=== PATIENT | female | born 1985 | race Caucasian/White ===

== ENCOUNTER 2018-03-10 12:07 | Emergency (ER) | payer OTHER ==
[2018-03-10] MEDS: LIDOCAINE 1% MDV 20ML VIAL IM (13:45)
[2018-03-10] MEDS: PERCOCET 5MG/325MG TAB PO (13:45)
[2018-03-10 13:49] LABS: BASO % 0.2 % (0.0-1.0); EOS # 0.1 10^3/uL (0.0-0.50); EOS % 0.7 % (0.0-3.0); HEMATOCRIT 39.9 % (36.0-47.0); HEMOGLOBIN 13.5 g/dl (12.0-15.5); IMMATURE GRANULOCYTE % 0.4 % (0-3.0); LYMPH # 1.9 10^3/uL (1.5-4.5); LYMPH % 20.7 % (24.0-44.0); MEAN CORPUSCULAR HEMOGLOBIN 34.9 pg (27.0-33.0); MEAN CORPUSCULAR HGB CONC 33.8 g/dl (32.0-36.5); MEAN CORPUSCULAR VOLUME 103.1 fl (80.0-96.0); MONO # 0.6 10^3/uL (0.0-0.8); MONO % 7.1 % (0.0-5.0); NEUTROPHILS # 6.3 10^3/uL (1.8-7.7); NEUTROPHILS % 70.9 % (36.0-66.0); PLATELET COUNT, AUTOMATED 246 10^3/uL (150-450); RED BLOOD COUNT 3.87 10^6/uL (4.00-5.40); RED CELL DISTRIBUTION WIDTH 12.6 % (11.5-14.5); WHITE BLOOD COUNT 8.9 10^3/uL (4.0-10.0)
[2018-03-10 14:22] LABS: ANION GAP 9 MEQ/L (8-16); BLOOD UREA NITROGEN 10 MG/DL (7-18); C REACTIVE PROTEIN QUANTITATIV 0.36 MG/DL (0.00-0.30); CALCIUM LEVEL 9.3 MG/DL (8.5-10.1); CARBON DIOXIDE LEVEL 23 MEQ/L (21-32); CHLORIDE LEVEL 103 MEQ/L (98-107); CREATININE FOR GFR 0.78 MG/DL (0.55-1.30); GLOMERULAR FILTRATION RATE > 60.0 (>60); GLUCOSE, FASTING 80 MG/DL (70-100); POTASSIUM SERUM 4.2 MEQ/L (3.5-5.1); SODIUM LEVEL 135 MEQ/L (136-145)
== END 2018-03-10 15:04 | disposition home or self-care (01) ==
LOC: M ED 12:07
DX: L72.3 Sebaceous cyst (principal); Z79.3 Long term (current) use of hormonal contraceptives; Z79.899 Other long term (current) drug therapy
CPT/HCPCS: 80048

== ENCOUNTER 2018-03-12 09:31 | Emergency (ER) | payer OTHER | END 2018-03-12 10:24 | disposition home or self-care (01) | LOC: M ED 09:31 | DX: Z48.00 Encounter for change or removal of nonsurgical wound dressing (principal); L02.11 Cutaneous abscess of neck; Z79.2 Long term (current) use of antibiotics; Z79.3 Long term (current) use of hormonal contraceptives | CPT/HCPCS: 99282 ==

== ENCOUNTER 2018-03-14 10:59 | Emergency (ER) | payer OTHER | END 2018-03-14 11:29 | disposition home or self-care (01) | LOC: M ED 10:59 | DX: L02.11 Cutaneous abscess of neck (principal); Z48.00 Encounter for change or removal of nonsurgical wound dressing; Z72.0 Tobacco use; Z79.3 Long term (current) use of hormonal contraceptives | CPT/HCPCS: 99282 ==